=== PATIENT | female | born 1975 | race Hispanic/Latino ===

== ENCOUNTER 2023-06-28 19:18 | Emergency (ER) | payer OTHER ==
[~2023-06-28] VITALS: Ht 160 cm; Wt 88.0 kg
--- OUTSIDE RECORDS SUMMARY | ~2023-06-28 | XMS | Continuity of Care Document ---
Demographics + + + | Address | [address] | | | [place] [address] | + + + | Preferred Language | Unknown | + + + | Marital Status | | + + + | Scientology Affiliation | Unknown | + + + | Race | Unknown | + + + | Ethnic Group | or | + + + Author + + + | Author | [facility] | + + + | Organization | [facility] | + + + | Address | [address] | | | [place] [address] | + + + | Phone | | + + + Care Team Providers + + + + | Care Pediatric Neuropsychologist Name | Role | Phone | + + + + Unavailable | Unavailable | + + + + Unavailable | Unavailable | + + + + Allergies No information. Encounters No information. Functional Status No information. Immunizations No information. Medications No information. Problems + + + + | date | description | facility | + + + + | 2023-05-19 10:37 | REACTION TO SEVERE STRESS, | [facility] | | | UNSPECIFIED | | + + + + | 2023-05-19 10:37 | GASTRO-ESOPHAGEAL REFLUX | [facility] | | | DISEASE WITHOUT ESOPHAGIT | | + + + + | 2023-05-19 10:37 | PAIN IN UNSPECIFIED KNEE | [facility] | + + + + | 2023-05-19 10:37 | OTHER CHEST PAIN | [facility] | + + + + Procedures No information. Results/Labs +--------+--------+ +---------+--------+---------+ | test | date | facility | value | unit | notes | +--------+--------+ +---------+--------+---------+ + + | Result panel 1 | + + + + + +-------+ + + | | 2023-05-19 | [facility] | 8.2 | (missing) | (missing) | | (unavailable | 11:15:07 [facility] | | | | + + + +-------+ + + + + | Result panel 2 | + + + + + +--------+ + + | | 2023-05-19 | [facility] | 79.9 | (missing) | (missing) | | (unavailable | [facility]15:07 [facility] | | | | + + + +--------+ + + + + | Result panel 3 | + + + + + +--------+ + + | | 2023-05-19 | [facility] | 11.9 | (missing) | (missing) | | (unavailable | [facility]15:07 [facility] | | | | + + + +--------+ + + + + | Result panel 4 | + + + + + +-------+ + + | | 2023-05-19 | [facility] | 6.9 | (missing) | (missing) | | (unavailable | [facility]:15:07 [facility] | | | | + + + +-------+ + + + + | Result panel 5 | + + + + + +-------+ + + | | 2023-05-19 | [facility] | 1.0 | (missing) | (missing) | | (unavailable | [facility]15:07 [facility] | | | | + + + +-------+ + + + + | Result panel 6 | + + + + + +-------+ + + | | 2023-05-19 | [facility] | 0.3 | (missing) | (missing) | | (unavailable | [facility]15:07 [facility] | | | | + + + +-------+ + + + + | Result panel 7 | + + + + + +-------+---------+ + | | 2023-05-19 | [facility] | 137 | mg/dL | (missing) | | (unavailable | [facility]:15:07 [facility] | | | | + + + +-------+---------+ + + + | Result panel 8 | + + + + + +------+---------+ + | | 2023-05-19 | [facility] | 10 | mg/dL | (missing) | | (unavailable | [facility]:15:07 [facility] | | | | + + + +------+---------+ + + + | Result panel 9 | + + + + + +--------+---------+ + | | 2023-05-19 | [facility] | 0.59 | mg/dL | (missing) | | (unavailable | [facility]:15:07 [facility] | | | | + + + +--------+---------+ + + + | Result panel 10 | + + + + + +-------+ + + | | 2023-05-19 | [facility] | 110 | (missing) | (missing) | | (unavailable | [facility]:15:07 [facility] | | | | + + + +-------+ + + + + | Result panel 11 | + + + + + +---------+ + + | | 2023-05-19 | [facility] | 16.94 | (missing) | (missing) | | (unavailable | [facility]:15:07 [facility] | | | | + + + +---------+ + + + + | Result panel 12 | + + + + + +--------+ + + | | 2023-05-19 | [facility] | 4.52 | (missing) | (missing) | | (unavailable | [facility]15:07 [facility] | | | | + + + +--------+ + + + + | Result panel 13 | + + + + + +-------+ + + | | 2023-05-19 | [facility] | 142 | (missing) | (missing) | | (unavailable | [facility]:15:07 [facility] | | | | + + + +-------+ + + + + | Result panel 14 | + + + + + +-------+ + + | | 2023-05-19 | [facility] | 4.0 | (missing) | (missing) | | (unavailable | 11:15:07 [facility] | | | | + + + +-------+ + + + + | Result panel 15 | + + + + + +-------+ + + | | 2023-05-19 | [facility] | 105 | (missing) | (missing) | | (unavailable | 11:15:07 | [facility] | | | | + + + +-------+ + + + + | Result panel 16 | + + + + + +------+ + + | | 2023-05-19 | [facility] | 26 | (missing) | (missing) | | (unavailable | [facility]:15:07 | [facility] | | | | + + + +------+ + + + + | Result panel 17 | + + + + + +--------+ + + | | 2023-05-19 | [facility] | 15.0 | (missing) | (missing) | | (unavailable | [facility]:15:07 [facility] | | | | + + + +--------+ + + + + | Result panel 18 | + + + + + +-------+---------+ + | | 2023-05-19 | [facility] | 9.0 | mg/dL | (missing) | | (unavailable | 11:15:07 | [facility] | | | | + + + +-------+---------+ + + + | Result panel 19 | + + + + + +-------+---------+ + | | 2023-05-19 | [facility] | 2.2 | mg/dL | (missing) | | (unavailable | | [facility] | | | | + + + +-------+---------+ + + + | Result panel 20 | + + + + + +-------+ + + | | 2023-05-19 | [facility] | 7.9 | (missing) | (missing) | | (unavailable | 11::07 | [facility] | | | | + + + +-------+ + + + + | Result panel 21 | + + + + + +-------+ + + | | 2023-05-19 | [facility] | 3.7 | (missing) | (missing) | | (unavailable | 11:15:07 | [facility] | | | | + + + +-------+ + + + + | Result panel 22 | + + + + + +-------+ + + | | 2023-05-19 | [facility] | 4.2 | (missing) | (missing) | | (unavailable | [facility]:15:07 [facility] | | | | + + + +-------+ + + + + | Result panel 23 | + + + + + +--------+ + + | | 2023-05-19 | [facility] | 13.9 | (missing) | (missing) | | (unavailable | 11:15:07 [facility] | | | | + + + +--------+ + + + + | Result panel 24 | + + + + + +--------+ + + | | 2023-05-19 | [facility] | 0.88 | (missing) | (missing) | | (unavailable | 11:15:07 | [facility] | | | | + + + +--------+ + + + + | Result panel 25 | + + + + + +-------+ + + | | 2023-05-19 | [facility] | 0.3 | (missing) | (missing) | | (unavailable | 11:15:07 | [facility] | | | | + + + +-------+ + + + + | Result panel 26 | + + + + + +------+ + + | | 2023-05-19 | [facility] | 13 | (missing) | (missing) | | (unavailable | 11:15:07 | [facility] | | | | + + + +------+ + + + + | Result panel 27 | + + + + + +------+ + + | | 2023-05-19 | [facility] | 25 | (missing) | (missing) | | (unavailable | 11:15:07 | [facility] | | | | + + + +------+ + + + + | Result panel 28 | + + + + + +-------+ + + | | 2023-05-19 | [facility] | 112 | (missing) | (missing) | | (unavailable | 11:15:07 [facility] | | | | + + + +-------+ + + + + | Result panel 29 | + + + + + +--------+ + + | | 2023-05-19 | [facility] | <4.0 | (missing) | (missing) | | (unavailable | [facility]:15:07 | [facility] | | | | + + + +--------+ + + + + | Result panel 30 | + + + + + +--------+ + + | | 2023-05-19 | [facility] | 40.8 | (missing) | (missing) | | (unavailable | 11:: | [facility] | | | | + + + +--------+ + + + + | Result panel 31 | + + + + + +--------+ + + | | 2023-05-19 | [facility] | 90.2 | (missing) | (missing) | | (unavailable | 11::07 | [facility] | | | | + + + +--------+ + + + + | Result panel 32 | + + + + + +--------+ + + | | 2023-05-19 | [facility] | 30.8 | (missing) | (missing) | | (unavailable | 11:15:07 | [facility] | | | | + + + +--------+ + + + + | Result panel 33 | + + + + + +--------+ + + | | 2023-05-19 | [facility] | 34.1 | (missing) | (missing) | | (unavailable | 11:15:07 | [facility] | | | | + + + +--------+ + + + + | Result panel 34 | + + + + + +--------+ + + | | 2023-05-19 | [facility] | 12.8 | (missing) | (missing) | | (unavailable | 11:15:07 | [facility] | | | | + + + +--------+ + + + + | Result panel 35 | + + + + + +-------+ + + | | 2023-05-19 | [facility] | 377 | (missing) | (missing) | | (unavailable | 11:15:07 | [facility] | | | | + + + +-------+ + + Social History + + + + | date | description | facility | + + + + | 2023-05-19 00:00 | Unknown if ever smoked | [facility] | + + + + Vital Signs + + + +---------+ | date | measurement | value | units | + + + +---------+ | 2023-05-19 00:00 | BMI | 34.4 | kg/m2 | + + + +---------+ | 2023-05-19 00:00 | BP_diastolic | 77 | mmHg | + + + +---------+ | 2023-05-19 00:00 | BP_systolic | 117 | mmHg | + + + +---------+ | 2023-05-19 00:00 | heart_rate | 64 | /min | + + + +---------+ | 2023-05-19 00:00 | height_metric | 160.02 | cm | + + + +---------+ | 2023-05-19 00:00 | height_standard | 63 | in | + + + +---------+ | 2023-05-19 00:00 | o2_saturation | 96 | % | + + + +---------+ | 2023-05-19 00:00 | respiration_rate | 13 | /min | + + + +---------+ | 2023-05-19 00:00 | temperature_metric | 36.89 | C | | | | | | + + + +---------+ | 2023-05-19 00:00 | | 98.4 | F | | | temperature_standar | | | | | d | | | + + + +---------+ | 2023-05-19 00:00 | weight_metric | 88 | kg | + + + +---------+ | 2023-05-19 00:00 | weight_standard | 194 | lb | + + + +---------+"
--- OUTSIDE RECORDS SUMMARY | ~2023-06-28 | XMS | Continuity of Care Document ---
Demographics + + + | Address | [address] | | | [place] [address] | + + + | Preferred Language | Unknown | + + + | Marital Status | | + + + | Hoahaoism Affiliation | Unknown | + + + | Race | Unknown | + + + | Ethnic Group | or | + + + Author + + + | Author | [facility] | + + + | Organization | [facility] | + + + | Address | [address] | | | [place] [address] | + + + | Phone | | + + + Care Team Providers + + + + | Care Cloth Packer Name | Role | Phone | + [...] | Unknown if ever smoked | [facility] | + + + + [...]
[2023-06-28 21:32] VITALS: BP 117/76
== END 2023-06-28 21:33 | disposition home or self-care (01) ==
LOC: ED 19:18
DX: R53.1 Weakness (principal)
CPT/HCPCS: 36415; 80053; 81001; 83690; 84443; 85025; 99284